=== PATIENT | female | born 1935 | race Caucasian/White ===

== ENCOUNTER 2018-10-02 09:55 | Day surgery (SDC) | payer MEDICARE, OTHER ==
[2018-10-01 09:56] VITALS: BMI 34.7
--- NOTE | 2018-10-02 09:32 | HP ---
Satellite H - Chief Complaint Chief Complaint: right shoulder pain - Past Medical History Allergies/Adverse Reactions: Allergies Allergy/AdvReac Type Severity Reaction Status Date / Time tetanus toxoid, adsorbed Allergy Unknown Verified 08/25/15 14:21 - Current Medications Current Medications: Home Medications Medication Instructions Recorded Nebivolol HCl [Bystolic] 10 mg PO DAILY 08/25/15 Omeprazole 20 mg PO DAILY 08/25/15 Albuterol Sulfate Inhaler - 1 - 2 inh PO PRN 10/01/18 [Ventolin Hfa Inhaler -] Alendronate Sodium [Binosto] 70 mg PO WEEKLY 10/01/18 Ranitidine [Zantac -] 150 mg PO HS 10/01/18 Hydrocodone/Acetaminophen 1 each PO Q6H #30 tablet MDD 4 10/02/18 [Hydrocodone-Acetamin 5-325 mg] Satellite Physical Exam - Physical Examination General Appearance: Well Nourished, Well Developed, Alert & Oriented x3 ENT: Clear Lung: Normal air movement Heart: Regular rate & rhythm Extremities: Other (right shoulder- + ttp, dec rom , +empty can, nvi, xrays show grade 4 djd) Neurological: Intact, Alert, Oriented Satellite Impression/Plan - Impression/Plan Impression: right shoulder djd, chronic rc arthropathy Operative Procedure: right reverse TSA Date to be Performed: 10/02/18
[~2018-10-02 09:55] MED LIST: ALBUTEROL SO4 8 GM HFA INHALER IH SCH; PATIENT'S OWN MEDICATION (NON-FORMULARY) (Alendronate Sodium [Binosto] 70 MG) PO SCH
[2018-10-02] MEDS ORDERED: NEBIVOLOL 10 MG TABLET (FP) PO SCH (10:00)
[2018-10-02] MEDS ORDERED: ALBUTEROL SO4 8 GM HFA INHALER IH SCH (10:15)
[2018-10-02] MEDS ORDERED: DEXAMETHASONE SOD PHOSPHATE 4 MG/1 ML VIAL ONE (12:10)
[2018-10-02] MEDS ORDERED: ceFAZolin SODIUM 1 GM VIAL ONE (12:10)
[2018-10-02] MEDS ORDERED: SODIUM CHLORIDE 0.9% P/F 10 ML VIAL IJ ONE (12:10)
[2018-10-02] MEDS ORDERED: KETOROLAC TROMETHAMINE 30 MG/1 ML VIAL ONE (12:10)
[2018-10-02] MEDS ORDERED: LIDOCAINE HCL/PF 2% SDV 5ML VIAL ONE (12:10)
[2018-10-02] MEDS ORDERED: BUPIVACAINE LIPOSOME/PF (EXPAREL) 266 MG/20 ML VIAL ONE (12:13)
[2018-10-02] MEDS ORDERED: PROPOFOL 20 ML ONE (12:13)
[2018-10-02] MEDS ORDERED: BUPIVACAINE HCL/PF 0.5% (5 MG/ML) 30 ML VIAL IJ ONE (12:13)
[2018-10-02] MEDS ORDERED: MIDAZOLAM HCL 2 MG/2 ML SINGLE DOSE VIAL ONE ×2 (12:14)
[2018-10-02] MEDS ORDERED: ONDANSETRON 4 MG/2 ML VIAL IVPUSH PRN (12:46)
[2018-10-02] MEDS ORDERED: ceFAZolin SODIUM 1 GM VIAL IVPB ONE (13:15)
[2018-10-02] MEDS ORDERED: EPHEDRINE SULFATE/0.9% NACL/PF 50 MG/10 ML SYRINGE NR ONE (13:31)
--- NOTE | 2018-10-02 15:07 | OP ---
Operative Note - Note: Operative Date: 10/02/18 Pre-Operative Diagnosis: right glenuhumeral OA, RTC arthropathy Operation: right shoulder reverse Total Shoulder Replacement Implants: [place], reverse TSR system: #11 humeral stem, 4mm Poly, 4mm humeral plate, 32mm glenosphere Post-Operative Diagnosis: Same as Pre-op Surgeon: Jevon Lindsey Accountant Auditor: Ruiz Graves Anesthesiologist/VOLUNTEER PATIENT REPRESENTATIVE: Mik Brush Anesthesia: General, Local Specimens Removed: right humeral head Estimated Blood Loss (mls): 100 Drains, Volume Out (mls): 0 Blood Volume Replaced (mls): 0 Fluid Volume Replaced (mls): 1,000 Operative Report Dictated: Yes
[2018-10-02] MEDS ORDERED: RANITIDINE HCL 150 MG TABLET (FP) PO SCH (22:00)
[2018-10-02] MEDS: LACTATED RINGERS SOLUTION 1,000 ML IV SCH (22:40)
[2018-10-03 05:07] VITALS: BP 127/64; PULSE 58; TEMP 97.7
--- NOTE | 2018-10-03 08:55 | PN ---
Progress Note (short form) - Note Progress Note: Ortho Pt seen and examined s/p right reverse TSA pod #1, c/o some dizziness Selected Entries 10/03/18 05:06 Temperature 97.7 F Pulse Rate 58 L Respiratory 20 Rate Blood Pressure 127/64 dressing c/d/i, full elbow wrist and hand rom, nvi a/p PT, rom exercises-no restrictions medical f/u pain control ok to d/c home today if dizziness improves
[2018-10-03] MEDS: oxyCODONE HCL 5 MG TABLET PO PRN ×2 (10:17→17:41)
[2018-10-03] MEDS: PANTOPRAZOLE 20 MG TABLET (FP) PO SCH ×2 (10:18→10:20)
--- NOTE | 2018-10-03 10:20 | DS ---
Physical Examination Vital Signs: Vital Signs Temperature 97.7 F 10/03/18 05:06 Pulse Rate 58 L 10/03/18 05:06 Respiratory Rate 20 10/03/18 05:06 Blood Pressure 127/64 10/03/18 05:06 O2 Sat by Pulse Oximetry (%) 95 10/02/18 17:45 Constitutional: Yes: No Distress, Calm Eyes: Yes: Conjunctiva Clear HENT: Yes: Atraumatic Neck: Yes: Supple Cardiovascular: Yes: Regular Rate and Rhythm Respiratory: Yes: Regular, CTA Bilaterally, On Nasal O2 Gastrointestinal: Yes: Normal Bowel Sounds, Soft Musculoskeletal: Yes: WNL Extremities: Yes: WNL Edema: No Neurological: Yes: Alert, Oriented Psychiatric: Yes: Alert, Oriented Discharge Summary Reason For Visit: RT SHOULDER TEAR Hospital Course: Patient is an 82 y/o female POD #1 right reverse TSA. Dressing to R shoulder in tact and R arm in sling. Cleared by ortho for discharge home. Complain of some dizziness this morning while sitting up. No orthostatic changes in BP and seen by cardiology. Condition: Good - Instructions Diet, Activity, Other Instructions: Post -op Instruction Sheet - Shoulder Surgery - Sling/Immobilizer : You have been placed in a sling or shoulder immobilizer. As long as you are wearing this, your shoulder is well protected. You may come out of the sling to dress , or do exercises as directed. You may bend and straighten the elbow, and move your wrist and fingers, but DO NOT use your own muscles to move your elbow away from your side until directed to do so. Please sleep with the sling on. You may find it more comfortable to sleep with a small pillow behind your elbow, or in a recliner. To wash your armpit, you may lean slightly forward and let your arm dangle slightly away from your side and wash with a washcloth. - Use an ice bag/pack on the shoulder for 15 minutes every 2 hours. - Pain medication was sent to your Pharmacy. - Keep your dressing clean and dry. Please call the office to make an appointment for 1 week after surgery. Your dressing will be removed at that time. - No Lifting. - Starting 1-2 days after surgery, you may take your arm out of the sling 3 times a day to bend and straighten your elbow and wrist to prevent stiffness. If only an arthroscopy was performed and NO repairs, you may move your shoulder as tolerated. If a rotator cuff/labral repair was performed, DO NOT move your shoulder until instructed by surgeon. - Please call the office at [phone] if there are any questions or concerns. Follow up with PCP in 1 week post discharge follow up with Orthopedic as listed above continue with medication as prescribed return to ER if develop severe pain, respiratory distress, fever, chest pain, altered mental status Referrals: Jevon Lindsey MD [Staff Physician] - Disposition: HOME - Home Medications Comprehensive Discharge Medication List: Ambulatory Orders Nebivolol HCl [Bystolic] 10 mg PO DAILY 08/25/15 Omeprazole 20 mg PO DAILY 08/25/15 Albuterol Sulfate Inhaler - [Ventolin Hfa Inhaler -] 1 - 2 inh PO PRN 10/01/18 Alendronate Sodium [Binosto] 70 mg PO WEEKLY 10/01/18 Ranitidine [Zantac -] 150 mg PO HS 10/01/18 Hydrocodone/Acetaminophen [Hydrocodone-Acetamin 5-325 mg] 1 each PO Q6H #30 tablet MDD 4 10/02/18
--- NOTE | 2018-10-03 11:36 | EKG ---
Test Reason : Blood Pressure : / mmHG Vent. Rate : 063 BPM Atrial Rate : 063 BPM P-R Int : 164 ms QRS Dur : 094 ms QT Int : 402 ms P-R-T Axes : 066 030 037 degrees QTc Int : 411 ms SINUS RHYTHM WITH MARKED SINUS ARRHYTHMIA WITH OCCASIONAL PREMATURE VENTRICULAR COMPLEXES OTHERWISE NORMAL ECG WHEN COMPARED WITH ECG OF 25-AUG-2015 14:15, PREMATURE VENTRICULAR COMPLEXES ARE NOW PRESENT Confirmed by CARLOS VARGAS, SIRISHA ([id number]) on 10/03/2018 11:35:57 AM Referred By: NICOLE LIEBERMAN Confirmed By:SIRISHA GONZALEZ MD
--- NOTE | 2018-10-03 12:29 | SPEC ---
DATE OF OPERATION: 10/02/2018 PREOPERATIVE DIAGNOSIS: Right shoulder rotator cuff arthropathy/severe glenohumeral osteoarthritis. 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 PROCEDURE: Right reverse total shoulder replacement. SURGEON: Jevon Lindsey MD PLANT BREEDER: DAREK Iqbal ANESTHESIA: Mik Brush CRNA and Jacqueline Howard MD. Right interscalene block with LMA anesthesia. DRAINS: None. COMPLICATIONS: None. SPECIMEN: Right humeral head. BLOOD LOSS: Minimal at 100 mL. BLOOD GIVEN: None. FLUID REPLACEMENT: 1000 mL Plasma-Lyte IMPLANTS: Fix8 review total shoulder replacement prosthesis, No. 11 humeral stem, 4-mm tray, 4-mm polyethylene, and 32-mm glenosphere. INDICATIONS: This patient is an 82-year-old female. Preoperative diagnosis was severe right glenohumeral osteoarthritis and rotator cuff arthropathy. After extensive preoperative discussions and after she understood the potential risks, complications, alternatives, and benefits to surgery versus nonsurgical treatment, the patient elected to undergo this procedure. She understands that her shoulder will not be perfect. Overhead motion may be difficult. She may require extensive physical therapy. There is a lifelong risk of infection and hardware failure. She may require additional surgery, and it may not relieve all of her pain. She understands. These and other potential risks and complications were discussed and elected to undergo this procedure. DESCRIPTION OF PROCEDURE: The patient was brought to the operating room. Peripheral IV place and IV sedation given. Right interscalene block was performed. LMA anesthesia was induced. She was placed into the beach chair position with ample padding throughout. Right upper extremity was prepped and draped in sterile fashion, and a standard deltopectoral incision was marked out with a making pen. A deltopectoral approach incision was marked out using the coracoid and mid aspect of the proximal humerus as landmarks. The incision was made with the No. 15 scalpel blade. Subcutaneous hemostasis was achieved with a Bovie cautery. Dissection was done through the superficial fascia. Blunt dissection was done with my finger in the deltopectoral interval. The cephalic vein was retracted medially. The Gelpi self-retaining retractors were placed into the wound. I found the conjoined tendon off the coracoid and used the Bovie to incise lateral to it. I was then able to cut down to bone and preserve the medial and lateral capsular flaps. The rotator cuff subscapularis was very deficient. I then peeled the soft tissues, including the anterior aspect of the deltoid insertion off the humerus. The biceps tendon was seen to be frayed, degenerated out of its groove, and therefore I did a biceps tenolysis. Appropriate Fukuda and pickle-fork retractors were placed into the wound, exposing the proximal humerus. I was able to easily dislocate it anteriorly. It was extremely arthritic. Next, using the external guide and a broach, I used the oscillating saw to do a cut at the articular margin. Osteophytes were removed with the rongeur. Some soft tissue was removed with the Bovie. I was able to expose the proximal humerus quite well. Next, using the standard technique, using the Fix8 Reverse Total Shoulder Replacement System, we used first the starting awl and then the sequential hand broaches until we had cortical chatter. Then we used the humeral stem-shape broaches and mallet. We eventually seated a 15-size stem that had excellent cortical contact and was very stable throughout. We did not need to use the calcar reamer as the humeral cut was at the right angle. Next, our attention was turned to the glenoid. The Bovie was used to remove soft tissue, including some capsular attachments and the labrum. Retractors were placed into the wound to retract the humerus and expose the glenoid. With excellent direct visualization, we then put on the glenoid glenosphere, lining it up appropriately and put in the 3.2-mm guidewire. We went through 2 cortices. We then used the guidewire to do the glenoid reamer. We were able to ream the glenoid until we got bleeding subchondral bone. More bone was taken inferiorly than superiorly, but it was concentric. The guidewire was then removed, and we put on the actual 28-mm glenoid baseplate, held it in place with a 28-mm central screw. Then using the typical standard technique, we put in superior, inferior, and posterior screws, which were 28, 28, and 16 mm in length, respectively. We had excellent compression of the glenoid baseplate against the glenoid and overall concentric fit. Next, we put on a 36-mm glenosphere. This was the actual implant, impacted in place, and it was quite stable. Next, our attention was turned to the humerus. We cleaned up the humeral shaft, put in an actual noncemented No. 11 [place] humeral press-fit porous-coated stem with a base plate of 4-mm polyethylene and used the mallet to put it down to the appropriate level. We then trialed the size of the humeral glenosphere, and it ended up being a 32-mm implant. It was extremely stable. In fact, it was very difficult to dislocate. Next, this trial was removed, and the actual 32-mm humeral glenosphere was placed on, it was reduced, and was extremely stable throughout. The area was copiously irrigated and washed out. The capsule was closed anteriorly with several No. 1 Ti-Cron sutures, the deep fascial layer closed with No. 1 Ti-Cron, and the superficial deltoid fascia closed with 0 Vicryl suture. A 2-0 Vicryl was used to close the deep dermal layer, and final skin reapproximation was done with a running subcuticular 3-0 V-Loc suture. The area was then washed and dried, covered with a 10-inch Aquacel dressing. The patient was extubated. There was total blood loss of 75 mL. There were no complications during the case. The shoulder immobilizer was placed in the operating room, and she was brought to the regular recovery room in stable condition. Total operative time about 1 hour 20 minutes. Swetha [id number]
--- NOTE | 2018-10-03 14:29 | CON.CARD ---
Consult Consult Specialty:: Cardiology Referred by:: Dr. Willson Reason for Consultation:: Dizziness - History of Present Illness Chief Complaint: Dizziness History of Present Illness: 82 year-old woman with a PMHx of HTN, osteoarthritis, chronic right shoulder arthropathy admitted 10/02/18 for elective should surgery. She underwent right right reverse TSA 10/02/18. She tolerated the operation well. She had one episode of dizziness/lightheadedness this morning when she stood up. No syncope or near syncope. Ms. Corrales has no history of CAD, MO or CHF. She reports no chest pain, SOB, palpitation, edema, orthopnea or PND. She has good exercise tolerance without exertional chest pain or SOB. - History Source History Provided By: Patient, Medical Record Limitations to Obtaining History: No Limitations - Past Medical History Musculoskeletal: Yes: Osteoarthritis, Other - Alcohol/Substance Use Hx Alcohol Use: No - Smoking History Smoking history: Former smoker Have you smoked in the past 12 months: No Aproximately how many cigarettes per day: 0 If you are a former smoker, when did you quit?: 30 yrs ago Home Medications - Allergies Allergies/Adverse Reactions: Allergies Allergy/AdvReac Type Severity Reaction Status Date / Time tetanus toxoid, adsorbed Allergy Unknown Verified 08/25/15 14:21 - Home Medications Home Medications: Ambulatory Orders Nebivolol HCl [Bystolic] 10 mg PO DAILY 08/25/15 Omeprazole 20 mg PO DAILY 08/25/15 Albuterol Sulfate Inhaler - [Ventolin HFA Inhaler -] 1 - 2 inh PO PRN 10/01/18 Alendronate Sodium [Binosto] 70 mg PO WEEKLY 10/01/18 Ranitidine [Zantac -] 150 mg PO HS 10/01/18 Hydrocodone/Acetaminophen [Hydrocodone-Acetamin 5-325 mg] 1 each PO Q6H #30 tablet MDD 4 10/02/18 Review of Systems - Review of Systems Constitutional: reports: No Symptoms Eyes: reports: No Symptoms HENT: reports: No Symptoms Neck: reports: No Symptoms Cardiovascular: reports: No Symptoms Respiratory: reports: No Symptoms Gastrointestinal: reports: No Symptoms Genitourinary: reports: No Symptoms Breasts: reports: No Symptoms Reported Musculoskeletal: reports: Decreased ROM, Extremity Pain, Joint Pain Integumentary: reports: No Symptoms Neurological: reports: Dizziness Endocrine: reports: No Symptoms Hematology/Lymphatic: reports: No Symptoms Psychiatric: reports: No Symptoms Vital Signs: Vital Signs Temperature 97.7 F 10/03/18 05:06 Pulse Rate 58 L 10/03/18 05:06 Respiratory Rate 20 10/03/18 05:06 Blood Pressure 127/64 10/03/18 05:06 O2 Sat by Pulse Oximetry (%) 95 10/02/18 17:45 General: Well developed. Well nourished. No acute distress. Head: Normocephalic. Atraumatic, Eyes: PERRLA, EOMI. Sclerae anicteric. Conjunctivae clear. Neck: Supple. No JVD. No bruits. Heart: Normal S1, S2: Regular rhythm and rate. No murmur. No gallop or rub. Lungs: Symmetrical air entry. Clear to auscultation. No crackle. No wheezing or rhonchi. Abdomen: Soft. Bowel sound positive. Non tender. No masses. Extremities: No edema. No clubbing or cyanosis. PD 2+, equal bilaterally. Neuro: Intact, no focal findings. AAO X3. Imaging - Results EKG: Image Reviewed (SINUS RHYTHM WITH MARKED SINUS ARRHYTHMIA WITH OCCASIONAL PREMATURE VENTRICULAR COMPLEXES OTHERWISE NORMAL ECG) Assessment/Plan 82 year-old woman with a PMHx of HTN, osteoarthritis, chronic right shoulder arthropathy admitted 10/02/18 for elective should surgery. She underwent right right reverse TSA 10/02/18. She tolerated the operation well. She had one episode of dizziness/lightheadedness this morning when she stood up. No syncope or near syncope. Post op postural dizziness/lightheadedness without syncope or near syncope: Her symptom was likely due to transient orthostatic hypotension (postural hypotension) one day post shoulder surgery. Encourage oral hydration. No further cardiac test indicated at this time. Please do not hesitate to call us for re-consult at any time if any further questions or additional issue arises regarding this patient.
[2018-10-03] MEDS ORDERED: PT OWN MED DRAWER 7, Y5N ONE (15:58)
[2018-10-03] MEDS: LACTATED RINGERS SOLUTION 1,000 ML IV SCH (16:05)
== END 2018-10-03 18:51 | disposition home or self-care (01) ==
LOC: JASUSAT 09:55 → J6S 18:37 → JASUSAT 10-03 18:51
PROVIDERS: ATTEND Orthopaedic Surgery
PROC: 0RRJ00Z Replacement of Right Shoulder Joint with Reverse Ball and Socket Synthetic Substitute, Open Approach (ICD-10-PCS; principal; 2018-10-02 13:00)
DX: M19.011 Primary osteoarthritis, right shoulder (principal)
CPT/HCPCS: 73030-TC-RT-FY; 88304-TC; 88311-TC; 93005; 93010; 94760; 97116-GP; 97161-GP